=== PATIENT | male | born 1980 | race Caucasian/White ===

== ENCOUNTER 2024-12-27 09:01 | Day surgery (SDC) | payer OTHER ==
[2024-12-26 14:01] VITALS: BMI 28.7
[2024-12-27] MEDS ORDERED: MIDAZOLAM HCL 2 MG/2 ML SINGLE DOSE VIAL ONE (09:33)
[2024-12-27] MEDS ORDERED: PROPOFOL 20 ML ONE (09:33)
[2024-12-27] MEDS ORDERED: LIDOCAINE HCL/PF 2% SDV 5ML VIAL ONE (09:33)
[2024-12-27 09:40] LABS: MCHC 32.6 g/dl (32.3-36.5); MEAN CELL VOLUME 95.9 fl (79.0-92.2); MEAN PLT VOLUME 13.3 fl (9.4-12.4); RDW 12.5 % (12.1-15.9)
[2024-12-27 09:56] LABS: CO2 28.0 mmol/L (21-32); CREATININE 1.0 mg/dl (0.6-1.3); GLUCOSE,RANDOM 97.0 mg/dl (74-106)
[2024-12-27] MEDS ORDERED: LIDOCAINE HCL 2% (20ML MULTI-DOSE VIAL) ONE (10:04)
[2024-12-27] MEDS ORDERED: DEXAMETHASONE SOD PHOSPHATE 4 MG/1 ML VIAL ONE (10:54)
[2024-12-27] MEDS ORDERED: ONDANSETRON 4 MG/2 ML VIAL ONE (11:25)
[2024-12-27] MEDS ORDERED: BACITRACIN ZINC 15 GM TUBE TOPICAL OINTMENT ONE (11:30)
[2024-12-27] MEDS ORDERED: ONDANSETRON 4 MG/2 ML VIAL IVPB PRN (11:52)
[2024-12-27] MEDS ORDERED: PROMETHAZINE HCL 25 MG/1 ML VIAL IVPB PRN (11:55)
[2024-12-27] MEDS ORDERED: LACTATED RINGERS SOLUTION 1,000 ML IV SCH ×2 (12:00)
[2024-12-27] MEDS ORDERED: ACETAMINOPHEN INJECTION 100 ML ONE (12:10)
[2024-12-27] MEDS: ACETAMINOPHEN 1000 MG/100 ML BAG IVPB ONE (12:13)
[2024-12-27 12:57] VITALS: RESP 18; TEMP 97.2
[2024-12-27 14:20] VITALS: BP 107/61; PULSE 89
== END 2024-12-27 13:40 | disposition home or self-care (01) ==
LOC: FASU 09:01
PROVIDERS: ATTEND Plastic Surgery
PROC: 0HBQXZZ Excision of Finger Nail, External Approach (ICD-10-PCS; principal; 2024-12-27 11:15)
DX: S68.522A Partial traumatic transphalangeal amputation of left thumb, initial encounter (principal); X58.XXXA Exposure to other specified factors, initial encounter; Y92.9 Unspecified place or not applicable; Y93.9 Activity, unspecified
CPT/HCPCS: 36415; 73140-TC-LT-FY; 80048; 85027; 93005; 94760